=== PATIENT | male | born 1985 | race Two or more races ===

== ENCOUNTER 2017-07-22 20:22 | Emergency (ER) | payer OTHER ==
[2017-07-23 10:23] LABS: NEGATIVE OBC STREP NEG; POSITIVE OBC STREP POS
== END 2017-07-22 21:26 | disposition home or self-care (01) ==
LOC: ER 20:22
DX: J30.9 Allergic rhinitis, unspecified (principal); M53.3 Sacrococcygeal disorders, not elsewhere classified; G89.29 Other chronic pain
CPT/HCPCS: 87070; 87880; 99283

== ENCOUNTER 2017-09-25 14:31 | Emergency (ER) | payer OTHER ==
[2017-09-25 14:52] LABS: BILIRUBIN,URINE NEGATIVE (NEG); CLARITY,URINE CLEAR; COLOR,URINE YELLOW; GLUCOSE,URINE NEGATIVE (NEG); NITRITE,URINE NEGATIVE (NEG); PROTEIN,URINE 100 mg/dL (NEG-TRACE); UROBILINOGEN,URINE 0.2 mg/dL (0.2 mg/dL)
[2017-09-25 14:55] LABS: ADD MAN DIFF? NO
[2017-09-25 15:00] LABS: BASO % 0 % (0-3); EOS # 0.2 x10^3/uL (0.0-0.7); EOS % 2 % (0-3); HEMATOCRIT 45.6 % (39.0-53.0); HEMOGLOBIN 15.8 g/dL (13.0-17.5); LYMPH # 2.7 x10^3/uL (1.0-4.8); LYMPH % 24 % (24-48); MEAN CORPUSCULAR HEMOGLOBIN 29 pg (25-35); MEAN CORPUSCULAR HGB CONC 35 g/dL (31-37); MEAN CORPUSCULAR VOLUME 84 fL (79-100); MONO # 0.6 x10^3/uL (0.0-1.1); MONO % 6 % (0-9); NEUT # 7.7 x10^3uL (1.8-7.7); NEUT % 68 % (31-73); PLATELET COUNT 226 x10^3/uL (140-400); RED BLOOD COUNT 5.41 x10^6/uL (4.30-5.70); RED CELL DISTRIBUTION WIDTH 13.8 % (11.5-14.5); WHITE BLOOD COUNT 11.4 x10^3/uL (4.0-11.0)
[2017-09-25 15:05] LABS: BACTERIA,URINE FEW /HPF (0-FEW); HYALINE CASTS, URINE FEW /HPF; SQUAMOUS EPITHELIAL CELL,UR OCC /LPF
[2017-09-25 15:11] LABS: ANION GAP 11 (6-14); BLOOD UREA NITROGEN 23 mg/dL (8-26); BUN/CREATININE RATIO 18 (6-20); CALCIUM 9.3 mg/dL (8.5-10.1); CARBON DIOXIDE 28 mmol/L (21-32); CHLORIDE 100 mmol/L (98-107); CREATININE 1.3 mg/dL (0.7-1.3); GLUCOSE 98 mg/dL (70-99); POTASSIUM 3.4 mmol/L (3.5-5.1); SODIUM 139 mmol/L (136-145)
[2017-09-25] MEDS: ONDANSETRON PF 4 MG/2 ML VIAL. IV (15:11)
[2017-09-25 15:16] LABS: ALBUMIN 4.6 g/dL (3.4-5.0); ALBUMIN/GLOBULIN RATIO 1.1 (1.0-1.7); ALK PHOS 93 U/L (46-116); ALT (SGPT) 59 U/L (16-63); AST (SGOT) 30 U/L (15-37); LIPASE 97 U/L (73-393); TOTAL BILIRUBIN 0.7 mg/dL (0.2-1.0); TOTAL PROTEIN 8.7 g/dL (6.4-8.2)
[2017-09-25] MEDS: POTASSIUM CHLORIDE 20 MEQ TABLET.ER. PO (15:59)
== END 2017-09-25 17:09 | disposition home or self-care (01) ==
LOC: ER 17:09
DX: R11.2 Nausea with vomiting, unspecified (principal); R19.7 Diarrhea, unspecified; R10.9 Unspecified abdominal pain; G89.29 Other chronic pain; G47.30 Sleep apnea, unspecified
CPT/HCPCS: 36415; 76700; 80053; 81001; 83690; 85025; 96374; 99285-25; J2405

== ENCOUNTER 2018-01-13 18:35 | Emergency (ER) | payer OTHER ==
[~2018-01-13] VITALS: Ht 172.7 cm; Wt 105.7 kg
[~2018-01-13 18:35] MED LIST: METH4TAB2 PO; ONDA4TAB10 SL
[2018-01-13 19:27] VITALS: BP 156/115
[2018-01-13] MEDS ORDERED: ACETAMINOPHEN 500 MG TABLET PO ONE (19:45)
[2018-01-13] MEDS ORDERED: HYDR-971 PO (20:22)
--- NOTE | 2018-01-13 20:22 | PHYS DOC ---
Past Medical History Past Medical History: Hypertension, Other Additional Past Medical Histor: chronic pain, sleep apnea Past Surgical History: Other Additional Past Surgical Histo: palette Alcohol Use: None Drug Use: None Adult General Chief Complaint Chief Complaint: ANKLE PROBLEM HPI HPI Patient is a 32 year old male who presents with right ankle pain after he was walking this evening and twisted his ankle. The patient states that the ankle rolled under him. He took [id number] pain relievers at home with moderate relief. He states that it does still hurt to bear weight on that extremity. He denies any other injury. Review of Systems Review of Systems Constitutional: Denies fever or chills [] Respiratory: Denies cough or shortness of breath [] Cardiovascular: No additional information not addressed in HPI [] GI: Denies abdominal pain, nausea, vomiting, bloody stools or diarrhea [] : Denies dysuria or hematuria [] Musculoskeletal: See history of present illness Integument: Denies rash or skin lesions [] Neurologic: Denies headache, focal weakness or sensory changes [] Endocrine: Denies polyuria or polydipsia [] All other systems were reviewed and found to be within normal limits, except as documented in this note. Current Medications Current Medications Current Medications Medications (Trade) Dose Ordered Sig/[place] Start Time Stop Time Status Last Admin Dose Admin Acetaminophen (Tylenol) 1,000 mg 1X ONCE 01/13/18 19:45 01/13/18 19:46 DC 01/13/18 19:45 1,000 MG Allergies Allergies Allergies Coded Allergies Type Severity Reaction Last Updated Verified No Known Drug Allergies 07/22/17 No Physical Exam Physical Exam Constitutional: Well developed, well nourished, no acute distress, non-toxic appearance. [] Cardiovascular:Heart rate regular rhythm, no murmur [] Lungs & Thorax: Bilateral breath sounds clear to auscultation [] Abdomen: Bowel sounds normal, soft, no tenderness, no masses, no pulsatile masses. [] Skin: Warm, dry, no erythema, no rash. [] Back: No tenderness, no CVA tenderness. [] Extremities: Tenderness to right lateral malleolus with mild ecchymosis and moderate edema, no cyanosis, no clubbing, ROM decreased due to pain, pulses and sensation are intact distal to injury Neurologic: Alert and oriented X 3, normal motor function, normal sensory function, no focal deficits noted. [] Psychologic: Affect normal, judgement normal, mood normal. [] Current Patient Data Vital Signs Vital Signs Date Time Temp Pulse Resp B/P (MAP) Pulse Ox O2 Delivery O2 Flow Rate FiO2 01/13/18 19:27 98.0 94 20 156/115 (129) 97 Room Air 98.0 EKG EKG [] Radiology/Procedures Radiology/Procedures [] Course & Med Decision Making Course & Med Decision Making Pertinent Labs and Imaging studies reviewed. (See chart for details) []The patient was placed in an Aircast for comfort. He is to follow-up with his PCP for possible referral to orthopedics if not improving in 3 days. He is in agreement with this plan. Dragon Disclaimer Dragon Disclaimer This electronic medical record was generated, in whole or in part, using a voice recognition dictation system. Splinting Splinting : Location: R ankle Pre-Made Type: aircast Pre-Proc Neuro Vasc Exam: normal Post-Proc Neuro Vasc Exam: normal, unchanged from pre-exam Departure Departure Impression: Primary Impression: Ankle sprain Disposition: 01 HOME, SELF-CARE Condition: STABLE Referrals: CAITLYN TAO MD (PCP) Patient Instructions: Ankle Sprain Additional Instructions: Wear the Aircast for comfort. Follow-up with your primary care provider for possible referral to orthopedics if not improving in one week. He may take ibuprofen or Tylenol for pain. I have written for a small amount of pain medication. Do not drive or operate heavy machinery while taking this medication. Scripts Hydrocodone/Apap 5-325 (NORCO 5-325 TABLET) 1 Each Tablet 1 TAB PO PRN Q6HRS PRN for PAIN, #14 TAB 0 Refills Prov: BRIANA BELLA APRN 01/13/18 Attending Signature Attending Signature I have reviewed the PA/WHARF HAND's note and plan of care. I was available for consultation as needed during the patient's visit in the emergency department. I agree with the clinical impression, plan, and disposition. BRIANA BELLA APRN Jan 13, 2018 20:22 ANN WILLOUGHBY DO Jan 16, 2018 11:02
--- NOTE | 2018-01-13 23:55 | RAD ---
Examination: ANKLE RIGHT 2V History: RIGHT ANKLE PAIN,SWELLING AFTER TWISTING FOOT TODAY Comparison/Correlation: None Findings: Frontal and lateral views of the right ankle were obtained. Mild soft tissue swelling about the lateral malleolus is present. Ankle joint mortise is adequate. No fracture or bone destruction. Impression: Mild soft tissue swelling about the lateral malleolus. Electronically signed by: Abel Santa MD (01/13/2018 11:52 PM) [facility]
== END 2018-01-13 20:36 | disposition home or self-care (01) ==
LOC: ER 18:35
DX: S93.401A Sprain of unspecified ligament of right ankle, initial encounter (principal); I10 Essential (primary) hypertension; G89.29 Other chronic pain; X50.9XXA Other and unspecified overexertion or strenuous movements or postures, initial encounter; Y93.89 Activity, other specified; Y92.89 Other specified places as the place of occurrence of the external cause; Y99.8 Other external cause status
CPT/HCPCS: 73600; 99284; L4350

== ENCOUNTER 2018-01-20 13:03 | Emergency (ER) | payer OTHER ==
[~2018-01-20] VITALS: Ht 167.6 cm; Wt 105.7 kg
[~2018-01-20 13:03] MED LIST changes: +HYDR-971 PO
[2018-01-20 13:29] VITALS: BP 145/88
--- NOTE | 2018-01-20 14:38 | PHYS DOC ---
Past Medical History Past Medical History: Hypertension, Other Additional Past Medical Histor: chronic pain, sleep apnea Past Surgical History: Other Additional Past Surgical Histo: palette Alcohol Use: None Drug Use: None Adult General Chief Complaint Chief Complaint: ANKLE PROBLEM [facility] Patient is a 32 year old male who presents with right ankle injury. Patient was evaluated in this emergency department one week earlier. He had stepped in a hole and had an inversion type injury to the right ankle. At that time, imaging was negative. He was discharged home with medication for pain. He presents back to the ER today complaining of worsening pain or worsening swelling in the same extremity. He did not sustain an additional injury. No fever or chills. He has been able to bear weight. He states the medications he is using at home does not help relieve his pain. Review of Systems Review of Systems Constitutional: Denies fever or chills Eyes: Denies HENT: Denies Respiratory: Denies Cardiovascular: No additional information not addressed in HPI Musculoskeletal: Denies back pain Integument: Denies rash Neurologic: Denies headache All other systems were reviewed and found to be within normal limits, except as documented in this note. Allergies Allergies Allergies Coded Allergies Type Severity Reaction Last Updated Verified No Known Drug Allergies 07/22/17 No Physical Exam Physical Exam Constitutional: Well developed, well nourished, no acute distress, non-toxic appearance HENT: Normocephalic, atraumatic, bilateral external ears normal, oropharynx moist Eyes: PERRLA, EOMI, conjunctiva normal Neck: Normal range of motion Cardiovascular:Heart rate regular rhythm, no murmur Lungs & Thorax: Bilateral breath sounds clear to auscultation Skin: Warm, dry, no erythema, no rash Extremities: extensive swelling is present is present over the right lateral malleolus. 2+ dp pulses present. Sensation to light touch intact over all dermatomes Neurologic: Alert and oriented X 3 Psychologic: Affect normal Current Patient Data Vital Signs Vital Signs Date Time Temp Pulse Resp B/P (MAP) Pulse Ox O2 Delivery O2 Flow Rate FiO2 01/20/18 13:29 97.9 96 17 145/88 (107) 98 Room Air 97.9 EKG EKG [] Radiology/Procedures Radiology/Procedures FINDINGS: There is a prominent nutrient vessel involving the posterior aspect of the shaft of the right tibia. This is a normal anatomical variant. Otherwise no fracture line is evident. Alignment is normal. No osteolytic process is evident. No soft tissue mass or abscess or hematoma is seen. No significant knee joint effusion is seen. No Judd's cyst is evident. IMPRESSION: No acute osseous abnormality. Course & Med Decision Making Course & Med Decision Making Pertinent Labs and Imaging studies reviewed. (See chart for details) Patient is evaluated for a second time in the emergency department for an ankle injury. This visit, CT scan was performed. There are still no acute bony fracture seen. The patient does have significant swelling on physical exam. Today, he'll be placed AURA wrap. D/c to home with meds for pain and instructions for RICE therapy. Dragon Disclaimer Dragon Disclaimer This electronic medical record was generated, in whole or in part, using a voice recognition dictation system. Departure Departure Referrals: CAITLYN ESTEBAN MD (PCP) Scripts Hydrocodone/Apap 5-325 (NORCO 5-325 TABLET) 1 Each Tablet 1-2 EACH PO PRN Q6HRS PRN for severe pain, #30 as needed for pain Prov: RAFAELA NEWMAN DO 01/20/18 Ibuprofen (IBUPROFEN) 800 Mg Tablet 800 MG PO PRN TID PRN for PAIN, #30 TAB take with food or milk to avoid upsetting stomach Prov: RAFAELA NEWMAN DO 01/20/18 RAFAELA NEWMAN DO Jan 20, 2018 14:38
--- NOTE | 2018-01-20 15:36 | RAD ---
CT study of the right lower leg without contrast Clinical indications: Trauma. Worsening pain/swelling. TECHNIQUE: Noncontrast helical CT scanning of the right lower leg from the knee down through the mortise ankle joint and foot performed. Multiplanar 2-D reconstructions were generated. PQRS compliance Statement One or more of the following individualized dose reduction techniques were utilized for this study: 1. Automated exposure control 2. Adjustment of the mA and/or kV according to patient size 3. Use of iterative reconstruction technique FINDINGS: There is a prominent nutrient vessel involving the posterior aspect of the shaft of the right tibia. This is a normal anatomical variant. Otherwise no fracture line is evident. Alignment is normal. No osteolytic process is evident. No soft tissue mass or abscess or hematoma is seen. No significant knee joint effusion is seen. No Judd's cyst is evident. IMPRESSION: No acute osseous abnormality. Electronically signed by: Saad Nielsen MD (01/20/2018 3:33 PM) [id number]
[2018-01-20] MEDS ORDERED: IBUP-1060 PO (15:51)
[2018-01-20] MEDS ORDERED: HYDR-971 PO (15:51)
== END 2018-01-20 16:15 | disposition home or self-care (01) ==
LOC: ER 13:03
DX: S99.911A Unspecified injury of right ankle, initial encounter (principal); I10 Essential (primary) hypertension; G89.29 Other chronic pain; X50.9XXA Other and unspecified overexertion or strenuous movements or postures, initial encounter; Y93.89 Activity, other specified; Y92.89 Other specified places as the place of occurrence of the external cause; Y99.8 Other external cause status
CPT/HCPCS: 73700; 99284-25

== ENCOUNTER 2018-05-11 08:16 | Emergency (ER) | payer OTHER ==
[~2018-05-11] VITALS: Ht 167.6 cm; Wt 99.8 kg
[~2018-05-11 08:16] MED LIST changes: +HYDR-3164 PO; -HYDR-971 PO; +IBUP-1060 PO
[2018-05-11] MEDS ORDERED: ONDANSETRON PF 4 MG/2 ML VIAL. IV ONE (08:30)
[2018-05-11] MEDS ORDERED: IV NORMAL SALINE 1000ML BAG 1,000 ML IV ONE ×2 (08:30→09:00)
--- NOTE | 2018-05-11 08:37 | PHYS DOC ---
Past Medical History Past Medical History: Hypertension, Other Additional Past Medical Histor: chronic pain, sleep apnea Past Surgical History: Other Additional Past Surgical Histo: palette Alcohol Use: None Drug Use: None Adult General Chief Complaint Chief Complaint: FLU SYMPTOM HPI HPI Patient is a 32 year old male who presents with nasal congestion, dry cough, chills, bodyaches since yesterday. Patient has began having nausea and vomiting today. Review of Systems Review of Systems Constitutional: Denies fever or chills [] Eyes: Denies change in visual acuity, redness, or eye pain [] HENT: nasal congestion or denies sore throat [] Respiratory: cough or denies shortness of breath [] Cardiovascular: No additional information not addressed in HPI [] GI: Denies abdominal pain. + nausea, +vomiting, denies bloody stools or diarrhea [] : Denies dysuria or hematuria [] Musculoskeletal: Denies back pain or joint pain [] Integument: Denies rash or skin lesions [] Neurologic: Denies headache, focal weakness or sensory changes [] All other systems were reviewed and found to be within normal limits, except as documented in this note. Current Medications Current Medications Current Medications Medications (Trade) Dose Ordered Sig/[facility] Start Time Stop Time Status Last Admin Dose Admin Ketorolac Tromethamine (Toradol 30mg Vial) 30 mg 1X ONCE 05/11/18 09:00 05/11/18 09:01 DC 05/11/18 08:58 30 MG Ondansetron HCl (Zofran) 4 mg 1X ONCE 05/11/18 08:30 05/11/18 08:31 DC 05/11/18 08:59 4 MG Sodium Chloride 1,000 ml @ 1,000 mls/hr 1X ONCE 05/11/18 09:00 05/11/18 09:59 DC 05/11/18 09:18 1,000 MLS/HR Allergies Allergies Allergies Coded Allergies Type Severity Reaction Last Updated Verified No Known Drug Allergies 07/22/17 No Physical Exam Physical Exam Constitutional: Well developed, well nourished, no acute distress, non-toxic appearance. [] HENT: Normocephalic, atraumatic, bilateral external ears normal, oropharynx moist, no oral exudates, nose normal. throat red and swollen without exudates.[] Eyes: PERRLA, EOMI, conjunctiva normal, no discharge. [] Neck: Normal range of motion, no tenderness, supple, no stridor. [] Cardiovascular:Heart rate tachy rhythm, no murmur [] Lungs & Thorax: Bilateral breath sounds clear to auscultation [] Abdomen: Bowel sounds normal, soft, no tenderness, no masses, no pulsatile masses. [] Skin: Warm, dry, no erythema, no rash. [] Back: No tenderness, no CVA tenderness. [] Extremities: No tenderness, no cyanosis, no clubbing, ROM intact, no edema. [] Neurologic: Alert and oriented X 3, normal motor function, normal sensory function, no focal deficits noted. [] Psychologic: Affect normal, judgement normal, mood normal. [] Current Patient Data Vital Signs Vital Signs Date Time Temp Pulse Resp B/P (MAP) Pulse Ox O2 Delivery O2 Flow Rate FiO2 05/11/18 10:17 98 16 98 Room Air 05/11/18 09:54 122/65 (84) 05/11/18 08:45 100.1 100.1 Lab Values Laboratory Tests Test 05/11/18 08:45 05/11/18 08:47 White Blood Count 7.2 x10^3/uL (4.0-11.0) Red Blood Count 5.37 x10^6/uL (4.30-5.70) Hemoglobin 15.1 g/dL (13.0-17.5) Hematocrit 44.2 % (39.0-53.0) Mean Corpuscular Volume 82 fL (79-100) Mean Corpuscular Hemoglobin 28 pg (25-35) Mean Corpuscular Hemoglobin Concent 34 g/dL (31-37) Red Cell Distribution Width 13.8 % (11.5-14.5) Platelet Count 155 x10^3/uL (140-400) Neutrophils (%) (Auto) 85 % (31-73) H Lymphocytes (%) (Auto) 8 % (24-48) L Monocytes (%) (Auto) 5 % (0-9) Eosinophils (%) (Auto) 2 % (0-3) Basophils (%) (Auto) 0 % (0-3) Neutrophils # (Auto) 6.1 x10^3uL (1.8-7.7) Lymphocytes # (Auto) 0.6 x10^3/uL (1.0-4.8) L Monocytes # (Auto) 0.4 x10^3/uL (0.0-1.1) Eosinophils # (Auto) 0.1 x10^3/uL (0.0-0.7) Basophils # (Auto) 0.0 x10^3/uL (0.0-0.2) Sodium Level 138 mmol/L (136-145) Potassium Level 4.4 mmol/L (3.5-5.1) Chloride Level 101 mmol/L (98-107) Carbon Dioxide Level 28 mmol/L (21-32) Anion Gap 9 (6-14) Blood Urea Nitrogen 17 mg/dL (8-26) Creatinine 1.2 mg/dL (0.7-1.3) Estimated GFR (Cockcroft-Gault) 70.2 Glucose Level 107 mg/dL (70-99) H Calcium Level 9.2 mg/dL (8.5-10.1) Influenza Type A Antigen Positive (NEGATIVE) Influenza Type B Antigen Negative (NEGATIVE) Laboratory Tests 05/11/18 08:45 Laboratory Tests 05/11/18 08:45 EKG EKG [] Radiology/Procedures Radiology/Procedures [] Course & Med Decision Making Course & Med Decision Making Patient is a 32 year old male who presents with nasal congestion, dry cough, chills, bodyaches since yesterday. Patient has began having nausea and vomiting today. Patient states he has not taken any medication he is afebrile. Patient is tachycardia at 110. Lungs are clear to auscultation in all lobes. Alert and oriented. Ambulatory with steady gait. Speaks in full clear senses. Mucous membranes are moist. Patient states his only vomited twice but he has not ate any food today. skin pink warm and dry. Abdomen is soft and nontender. Rates his generalized body aches at a 6/10. Patient denies throat pain, ear pain, abdominal pain, dysuria, headache, chest pain, soa. Bilateral tympanic are pearly white. Throat red and swelling but no exudates. Blood work unremarkable. Positive Flu A. Strep negative. Patient has received 2 boluses of NS and heart rate is 94. Patient will be treated with Tamiflu, Zofran and Tessalon Perles. Patient to follow up with primary care physician if not feeling better after 3-4 days or worsening. Dragon Disclaimer Dragon Disclaimer This electronic medical record was generated, in whole or in part, using a voice recognition dictation system. Departure Departure Impression: Primary Impression: Influenza A Disposition: 01 HOME, SELF-CARE Condition: STABLE Referrals: CAITLYN ESTEBAN MD (PCP) Patient Instructions: Influenza A (H1N1) Additional Instructions: Follow up with primary care provider if not getting better after 3-4 days or symptoms worsen. Drink plenty of water. Take Ibuprofen or Tylenol for pain or fever. Scripts Methylprednisolone (MEDROL) 4 Mg Tab.ds.pk 1 PKG PO UD, #1 PKG Prov: TORITO HOWELL APRN 05/11/18 Benzonatate (TESSALON PERLE) 100 Mg Capsule 1 CAP PO TID, #30 CAP Prov: TORITO HOWELL APRN 05/11/18 Ondansetron (ONDANSETRON ODT) 4 Mg Tab.rapdis 1 TAB PO PRN Q6-8HRS, #20 TAB Prov: TORITO HOWELL APRN 05/11/18 Oseltamivir Phosphate (TAMIFLU) 75 Mg Capsule 1 CAP PO BID for 5 Days, #10 CAP Prov: TORITO HOWELL APRN 05/11/18 TORITO HOWELL APRN May 11, 2018 08:37
[2018-05-11 08:58] LABS: BASO % 0 % (0-3); EOS # 0.1 x10^3/uL (0.0-0.7); EOS % 2 % (0-3); HEMATOCRIT 44.2 % (39.0-53.0); HEMOGLOBIN 15.1 g/dL (13.0-17.5); LYMPH # 0.6 x10^3/uL (1.0-4.8); LYMPH % 8 % (24-48); MEAN CORPUSCULAR HEMOGLOBIN 28 pg (25-35); MEAN CORPUSCULAR HGB CONC 34 g/dL (31-37); MEAN CORPUSCULAR VOLUME 82 fL (79-100); MONO # 0.4 x10^3/uL (0.0-1.1); MONO % 5 % (0-9); NEUT # 6.1 x10^3uL (1.8-7.7); NEUT % 85 % (31-73); PLATELET COUNT 155 x10^3/uL (140-400); RED BLOOD COUNT 5.37 x10^6/uL (4.30-5.70); RED CELL DISTRIBUTION WIDTH 13.8 % (11.5-14.5); WHITE BLOOD COUNT 7.2 x10^3/uL (4.0-11.0)
[2018-05-11] MEDS ORDERED: KETOROLAC 30 MG/ML VIAL. IV ONE (09:00)
[2018-05-11 09:07] LABS: CALCIUM 9.2 mg/dL (8.5-10.1); CREATININE 1.2 mg/dL (0.7-1.3); GFR 70.2; POTASSIUM 4.4 mmol/L (3.5-5.1)
[2018-05-11 09:29] LABS: INFLUENZA A PATIENT POSITIVE (NEGATIVE); INFLUENZA B PATIENT NEGATIVE (NEGATIVE)
[2018-05-11] MEDS ORDERED: ONDA4TAB12 PO (09:35)
[2018-05-11] MEDS ORDERED: BENZ100C PO (09:35)
[2018-05-11] MEDS ORDERED: OSEL75CA PO (09:35)
[2018-05-11 09:54] VITALS: BP 122/65
[2018-05-11] MEDS ORDERED: METH4TAB2 PO (10:19)
== END 2018-05-11 10:32 | disposition home or self-care (01) ==
LOC: ER 08:16
DX: J10.1 Influenza due to other identified influenza virus with other respiratory manifestations (principal); R11.2 Nausea with vomiting, unspecified; G89.29 Other chronic pain; I10 Essential (primary) hypertension
CPT/HCPCS: 36415; 80048; 85025; 87070; 87804; 87880; 96361; 96374; 96375; 99283; J1885; J2405; J7030

== ENCOUNTER 2018-07-10 19:07 | Emergency (ER) | payer OTHER ==
[~2018-07-10] VITALS: Ht 172.7 cm; Wt 90.7 kg
[~2018-07-10 19:07] MED LIST changes: +BENZ100C PO; +ONDA4TAB12 PO; +OSEL75CA PO
[2018-07-10] MEDS ORDERED: METO50TA6 PO (20:07)
[2018-07-10] MEDS ORDERED: predniSONE 20 MG TABLET PO ONE (20:15)
--- NOTE | 2018-07-10 20:16 | PHYS DOC ---
Past Medical History Past Medical History: Hypertension Additional Past Medical Histor: SLEEP APNEA (UYEN GODDARD) Past Surgical History: Other Additional Past Surgical Histo: CLEFT PALATE (UYEN GODDARD) Alcohol Use: None Drug Use: None (UYEN GODDARD) Adult General Chief Complaint Chief Complaint: COUGH HPI HPI Patient is a 32 year old M who reports cough x 2 weeks. He has had scratchy throat and watery, itchy eyes and reports the over the counter claritin or rey adryl doesn't seem to be helping. (UYEN GODDARD) Review of Systems Review of Systems Constitutional: Denies fever or chills [] Eyes: Denies change in visual acuity. Reports dry scratchy eyes B HENT: Reports nasal congestion and scratchy throat. Respiratory: Denies cough or shortness of breath [] Cardiovascular: Denies chest pain GI: Denies abdominal pain, nausea, vomiting, bloody stools or diarrhea [] : Denies dysuria or hematuria [] Musculoskeletal: Denies back pain or joint pain [] Integument: Denies rash or skin lesions [] Neurologic: Denies headache, focal weakness or sensory changes [] All other systems were reviewed and found to be within normal limits, except as documented in this note. (UYEN GODDARD) Current Medications Current Medications Current Medications Medications (Trade) Dose Ordered Sig/[place] Start Time Stop Time Status Last Admin Dose Admin Prednisone (Prednisone) 60 mg 1X ONCE 07/10/18 20:15 07/10/18 20:16 DC 07/10/18 20:27 60 MG (ANN WILLOUGHBY DO) Allergies Allergies Allergies Coded Allergies Type Severity Reaction Last Updated Verified No Known Drug Allergies 07/22/17 No (ANN WILLOUGHBY DO) Physical Exam Physical Exam Constitutional: Well developed, well nourished, no acute distress, non-toxic appearance. [] HENT: Normocephalic, atraumatic, bilateral external ears normal, oropharynx moist. Clear nasal drainage and post nasal drip noted in oropharynx. Eyes: PERRLA, EOMI, conjunctiva normal, no discharge. [] Neck: Normal range of motion, no tenderness, supple, no stridor. [] Cardiovascular:Heart rate regular rhythm, no murmur [] Lungs & Thorax: Bilateral scattered wheezes. Abdomen: Bowel sounds normal, soft, no tenderness, no masses, no pulsatile masses. [] Skin: Warm, dry, no erythema, no rash. [] Back: No tenderness, no CVA tenderness. [] Extremities: No tenderness, no cyanosis, no clubbing, ROM intact, no edema. [] Neurologic: Alert and oriented X 3, normal motor function, normal sensory functi on, no focal deficits noted. [] Psychologic: Affect normal, judgement normal, mood normal. [] (UYEN GODDARD) Current Patient Data Vital Signs Vital Signs Date Time Temp Pulse Resp B/P (MAP) Pulse Ox O2 Delivery O2 Flow Rate FiO2 07/10/18 20:52 94 20 131/80 (97) 94 Room Air 07/10/18 19:56 97.9 97.9 (ANN WILLOUGHBY DO) EKG EKG [] (UYEN GODDARD) Radiology/Procedures Radiology/Procedures CXR: xray is neg for infiltrate (UYEN GODDARD) Course & Med Decision Making Course & Med Decision Making Pertinent Labs and Imaging studies reviewed. (See chart for details) Pt with signs and symptoms of seasonal allergies and bronchitis. Pt to follow up with PCP and return to ER if symptoms worsen at anytime. (UYEN GODDARD) Dragon Disclaimer Dragon Disclaimer This electronic medical record was generated, in whole or in part, using a voice recognition dictation system. (UYEN GODDARD) Departure Departure Impression: Primary Impression: Bronchitis Additional Impression: Seasonal allergies Disposition: HOME, SELF-CARE Condition: STABLE Referrals: CAITLYN ESTEBAN MD (PCP) Patient Instructions: Acute Bronchitis, [id number], Allergies, Generic Additional Instructions: Continue the Claritin. Scripts Azithromycin (AZITHROMYCIN PACKET) 1 Gm Packet 1 PACKET PO ONCE, #1 PACKET Prov: UYEN GODDARD 07/10/18 Methylprednisolone (MEDROL) 4 Mg Tab.ds.pk 1 PKG PO UD, #1 PKG Prov: UYEN GODDARD 07/10/18 Attending Signature Attending Signature I have reviewed the PA/FLAT LOCK MACHINE OPERATOR's note and plan of care. I was available for consu ltation as needed during the patient's visit in the emergency department. I agree with the clinical impression, plan, and disposition. (ANN WILLOUGHBY DO) Problem Qualifiers UYEN GODDARD Jul 10, 2018 20:16 ANN WILLOUGHBY DO Jul 13, 2018 15:33
[2018-07-10] MEDS ORDERED: AZIT1PAC9 PO (20:37)
[2018-07-10] MEDS ORDERED: METH4TAB2 PO (20:37)
[2018-07-10 20:52] VITALS: BP 131/80
--- NOTE | 2018-07-10 22:31 | RAD ---
Two-view chest dated 07/10/2018. No comparison available. Clinical data indication: Cough. FINDINGS: PA and lateral views of the chest were obtained. Heart and mediastinal contours are stable. Lungs are clear without focal consolidation. Vascular interstitium within normal limits. No pleural effusion or pneumothorax. IMPRESSION: No acute radiographic abnormality. Electronically signed by: Felix Sosa MD (07/10/2018 10:29 PM) [id number]
== END 2018-07-10 20:52 | disposition home or self-care (01) ==
LOC: ER 19:07
DX: J40 Bronchitis, not specified as acute or chronic (principal); J30.2 Other seasonal allergic rhinitis; I10 Essential (primary) hypertension
CPT/HCPCS: 71046; 99284; J7512

== ENCOUNTER 2018-07-29 09:11 | Emergency (ER) | payer OTHER ==
[~2018-07-29] VITALS: Ht 167.6 cm; Wt 102.1 kg
[~2018-07-29 09:11] MED LIST changes: +AZIT1PAC9 PO; +METO50TA6 PO
[2018-07-29] MEDS ORDERED: ONDANSETRON PF 4 MG/2 ML VIAL. IV ONE (09:30)
[2018-07-29] MEDS ORDERED: IV NORMAL SALINE 1000ML BAG 1,000 ML IV ONE (09:30)
--- NOTE | 2018-07-29 09:45 | PHYS DOC ---
Past Medical History Past Medical History: Hypertension Additional Past Medical Histor: SLEEP APNEA Past Surgical History: Other Additional Past Surgical Histo: CLEFT PALATE Alcohol Use: None Drug Use: None Adult General Chief Complaint Chief Complaint: NAUSEA/VOMITING/DIARRHA HPI HPI Patient is a 32 year old M who presents with vomiting. He has been sick since late last night. Vomiting many times. A few episodes of diarrhea. Epigastric pain. He denies sick contacts. He went to the gym last night and on his way drank a supplement called somatomax. He denies fevers/chills. He does feel dizzy if he stands up too fast. He denies prior history of similar episodes. He is otherwise healthy and has never been hospitalized. Review of Systems Review of Systems Constitutional: Denies fever or chills Eyes: Denies change in visual acuity, redness, or eye pain HENT: Denies nasal congestion or sore throat Respiratory: Denies cough or shortness of breath Cardiovascular: No additional information not addressed in HPI GI: Endorses vomiting and diarrhea : Denies dysuria or hematuria Musculoskeletal: Denies back pain or joint pain Integument: Denies rash or skin lesions Neurologic: Denies headache, focal weakness or sensory changes Endocrine: Denies polyuria or polydipsia All other systems were reviewed and found to be within normal limits, except as documented in this note. Current Medications Current Medications Current Medications Medications (Trade) Dose Ordered Sig/Franklyn Start Time Stop Time Status Last Admin Dose Admin Ondansetron HCl (Zofran) 4 mg 1X ONCE 07/29/18 09:30 07/29/18 09:31 DC 07/29/18 09:36 4 MG Sodium Chloride 1,000 ml @ 1,000 mls/hr 1X ONCE 07/29/18 09:30 07/29/18 10:29 DC 07/29/18 09:34 1,000 MLS/HR Allergies Allergies Allergies Coded Allergies Type Severity Reaction Last Updated Verified No Known Drug Allergies 07/22/17 No Physical Exam Physical Exam Constitutional: Well developed, well nourished, no acute distress, non-toxic appearance. HENT: Normocephalic, atraumatic, bilateral external ears normal, oropharynx moist, no oral exudates, nose normal. Eyes: PERRLA, EOMI, conjunctiva normal, no discharge. Neck: Normal range of motion, no tenderness, supple, no stridor. Cardiovascular:Heart rate regular rhythm, no murmur Lungs & Thorax: Bilateral breath sounds clear to auscultation Abdomen: Bowel sounds normal, soft, no tenderness, no masses, no pulsatile masses. Skin: Warm, dry, no erythema, no rash. Back: No tenderness, no CVA tenderness. Extremities: No tenderness, no cyanosis, no clubbing, ROM intact, no edema. Neurologic: Alert and oriented X 3, normal motor function, normal sensory function, no focal deficits noted. Psychologic: Affect normal, judgement normal, mood normal. Current Patient Data Vital Signs Vital Signs Date Time Temp Pulse Resp B/P (MAP) Pulse Ox O2 Delivery O2 Flow Rate FiO2 07/29/18 11:02 69 16 137/82 (100) 99 07/29/18 09:47 Room Air 07/29/18 09:15 97.6 97.6 Lab Values Laboratory Tests Test 07/29/18 09:18 White Blood Count 8.9 x10^3/uL (4.0-11.0) Red Blood Count 5.22 x10^6/uL (4.30-5.70) Hemoglobin 15.0 g/dL (13.0-17.5) Hematocrit 43.5 % (39.0-53.0) Mean Corpuscular Volume 83 fL (79-100) Mean Corpuscular Hemoglobin 29 pg (25-35) Mean Corpuscular Hemoglobin Concent 35 g/dL (31-37) Red Cell Distribution Width 13.9 % (11.5-14.5) Platelet Count 203 x10^3/uL (140-400) Neutrophils (%) (Auto) 82 % (31-73) H Lymphocytes (%) (Auto) 14 % (24-48) L Monocytes (%) (Auto) 4 % (0-9) Eosinophils (%) (Auto) 1 % (0-3) Basophils (%) (Auto) 0 % (0-3) Neutrophils # (Auto) 7.3 x10^3uL (1.8-7.7) Lymphocytes # (Auto) 1.2 x10^3/uL (1.0-4.8) Monocytes # (Auto) 0.3 x10^3/uL (0.0-1.1) Eosinophils # (Auto) 0.1 x10^3/uL (0.0-0.7) Basophils # (Auto) 0.0 x10^3/uL (0.0-0.2) Sodium Level 139 mmol/L (136-145) Potassium Level 4.2 mmol/L (3.5-5.1) Chloride Level 103 mmol/L (98-107) Carbon Dioxide Level 24 mmol/L (21-32) Anion Gap 12 (6-14) Blood Urea Nitrogen 15 mg/dL (8-26) Creatinine 0.9 mg/dL (0.7-1.3) Estimated GFR (Cockcroft-Gault) 97.8 BUN/Creatinine Ratio 17 (6-20) Glucose Level 141 mg/dL (70-99) H Calcium Level 9.3 mg/dL (8.5-10.1) Total Bilirubin 0.5 mg/dL (0.2-1.0) Aspartate Amino Transferase (AST) 60 U/L (15-37) H Alanine Aminotransferase (ALT) 78 U/L (16-63) H Alkaline Phosphatase 71 U/L (46-116) Total Protein 7.7 g/dL (6.4-8.2) Albumin 4.0 g/dL (3.4-5.0) Albumin/Globulin Ratio 1.1 (1.0-1.7) Lipase 67 U/L (73-393) L Laboratory Tests 07/29/18 09:18 Laboratory Tests 07/29/18 09:18 EKG EKG [] Radiology/Procedures Radiology/Procedures [] Course & Med Decision Making Course & Med Decision Making Pertinent Labs and Imaging studies reviewed. (See chart for details) 32 y/o M presents for dizziness, vomiting, diarrhea after taking somatomax supplement. Ingredients include aminos and vitamins - side effects include vomiting, diarrhea, dizziness. Tx with zofran and NS bolus. check labs. Pt is feeling much better. no further vomiting. labs reassuring. Suspect sx are due to side effect from supplement vs viral. Discussed elevated LFTs and need for repeat. Pt would like to go home. DC home. Follow up with PMD. Nasir Disclaimer Nasir Disclaimer This electronic medical record was generated, in whole or in part, using a voice recognition dictation system. Departure Departure Impression: Primary Impression: Vomiting Disposition: HOME, SELF-CARE Condition: IMPROVED Referrals: CAITLYN ESTEBAN MD (PCP) Patient Instructions: Nausea and Vomiting Scripts Ondansetron Hcl (ZOFRAN) 4 Mg Tablet 4 MG PO PRN TID PRN for VOMITING for 7 Days, #15 EACH 1 Refill nausea/vomiting Prov: KARLA ROLDAN MD 07/29/18 KARLA ROLDAN MD July 29, 2018 09:45
[2018-07-29 09:52] LABS: CALCIUM 9.3 mg/dL (8.5-10.1); CREATININE 0.9 mg/dL (0.7-1.3); GFR 97.8; POTASSIUM 4.2 mmol/L (3.5-5.1)
[2018-07-29 09:55] LABS: BASO % 0 % (0-3); EOS # 0.1 x10^3/uL (0.0-0.7); EOS % 1 % (0-3); HEMATOCRIT 43.5 % (39.0-53.0); LYMPH # 1.2 x10^3/uL (1.0-4.8); LYMPH % 14 % (24-48); MEAN CORPUSCULAR HEMOGLOBIN 29 pg (25-35); MEAN CORPUSCULAR HGB CONC 35 g/dL (31-37); MEAN CORPUSCULAR VOLUME 83 fL (79-100); MONO # 0.3 x10^3/uL (0.0-1.1); MONO % 4 % (0-9); NEUT # 7.3 x10^3uL (1.8-7.7); NEUT % 82 % (31-73); PLATELET COUNT 203 x10^3/uL (140-400); RED BLOOD COUNT 5.22 x10^6/uL (4.30-5.70); RED CELL DISTRIBUTION WIDTH 13.9 % (11.5-14.5); WHITE BLOOD COUNT 8.9 x10^3/uL (4.0-11.0)
[2018-07-29 09:58] LABS: ALBUMIN/GLOBULIN RATIO 1.1 (1.0-1.7); TOTAL BILIRUBIN 0.5 mg/dL (0.2-1.0); TOTAL PROTEIN 7.7 g/dL (6.4-8.2)
[2018-07-29] MEDS ORDERED: ONDA4TAB7 PO (10:57)
[2018-07-29 11:02] VITALS: BP 137/82
== END 2018-07-29 11:06 | disposition home or self-care (01) ==
LOC: ER 09:11
DX: R11.10 Vomiting, unspecified (principal); R19.7 Diarrhea, unspecified; R10.13 Epigastric pain; R42 Dizziness and giddiness; I10 Essential (primary) hypertension
CPT/HCPCS: 36415; 80053; 83690; 85025; 96361; 96374; 99284; J2405; J7030

== ENCOUNTER 2019-04-12 12:45 | Emergency (ER) | payer MEDICAID ==
[~2019-04-12] VITALS: Ht 177.8 cm; Wt 90.1 kg
[~2019-04-12 12:45] MED LIST changes: +CLIN150C14 PO; +ONDA4TAB7 PO
[2019-04-12 13:07] VITALS: BP 158/97
--- NOTE | 2019-04-12 13:14 | PHYS DOC ---
Past Medical History Past Medical History: No Pertinent History, Hypertension Additional Past Medical Histor: SLEEP APNEA Past Surgical History: Other Additional Past Surgical Histo: CLEFT PALATE Alcohol Use: None Drug Use: None Adult General Chief Complaint Chief Complaint: SORE THROAT HPI HPI Patient is a 33 year old [male] who presents with [2 days fever, cough, sore throat, fatigue. Patient reports his daughter at home is have the same symptoms started at the same time as he did. Denies any vomiting, however does state he has felt a little bit nauseous. States he is taking some NyQuil for his malaise, he felt a little bit better but has not taken anything else. States he has a dry nonproductive cough. Denies any chest discomfort.] Review of Systems Review of Systems Constitutional: Reports fever and chills for the last 2 days, reports he just cannot get warm.[] Eyes: Denies change in visual acuity, redness, or eye pain [] HENT: Reports congestion, reports sore throat.[] Respiratory: Reports cough, denies shortness of breath[] Cardiovascular: No additional information not addressed in HPI [] GI: Denies abdominal pain, vomiting, bloody stools or diarrhea does state he feels a little bit of nausea when he has been coughing[] : Denies dysuria or hematuria [] Musculoskeletal: Denies back pain or joint pain does report body aches[] Integument: Denies rash or skin lesions [] Neurologic: Denies headache, focal weakness or sensory changes [] Endocrine: Denies polyuria or polydipsia [] All other systems were reviewed and found to be within normal limits, except as documented in this note. Allergies Allergies Allergies Coded Allergies Type Severity Reaction Last Updated Verified No Known Drug Allergies 07/22/17 No Physical Exam Physical Exam Constitutional: Well developed, well nourished, no acute distress, non-toxic appearance. [] HENT: Normocephalic, atraumatic, bilateral external ears normal, oropharynx moist, tonsils 3+, minimal erythema, no purulence noted no oral exudates, nose normal. [] Eyes: PERRLA, EOMI, conjunctiva normal, no discharge. [] Neck: Normal range of motion, no tenderness, supple, no stridor. [] Cardiovascular:Heart rate tachycardic rhythm, no murmur [] Lungs & Thorax: Bilateral breath sounds clear to auscultation, faint wheeze noted to right chest [] Abdomen: Bowel sounds normal, soft, no tenderness, no masses, no pulsatile masses. [] Skin: Warm, dry, no erythema, no rash. [] Back: No tenderness, no CVA tenderness. [] Extremities: No tenderness, no cyanosis, no clubbing, ROM intact, no edema. [] Neurologic: Alert and oriented X 3, normal motor function, normal sensory function, no focal deficits noted. [] Psychologic: Affect normal, judgement normal, mood normal. [] Current Patient Data Vital Signs Vital Signs Date Time Temp Pulse Resp B/P (MAP) Pulse Ox O2 Delivery O2 Flow Rate FiO2 04/12/19 13:07 99.1 98 16 158/97 (117) 96 Room Air 99.1 Lab Values Laboratory Tests Test 04/12/19 12:55 04/12/19 13:00 Influenza Type A Antigen Negative (NEGATIVE) Influenza Type B Antigen Negative (NEGATIVE) Group A Streptococcus Rapid Negative (NEGATIVE) EKG EKG [] Radiology/Procedures Radiology/Procedures []CHEST PA LATERAL History: Fever. Cough. Comparison: July 10, 2018 Findings: No consolidation or pleural effusion. Normal heart size. No pneumothorax. Calcified pulmonary nodules within the left lateral midlung, unchanged. Impression: 1. No acute cardiopulmonary process. Electronically signed by: Garett Dudley DO (04/12/2019 2:16 PM) [facility] Course & Med Decision Making Course & Med Decision Making Pertinent Labs and Imaging studies reviewed. (See chart for details) []Reviewed imaging and testing with patient, without acute findings. Patient's symptoms appear viral, patient able to drink, well hydrated. Other family m embers with similar illness. May continue fluids, NSAIDs as needed. Dragon Disclaimer Dragon Disclaimer This electronic medical record was generated, in whole or in part, using a voice recognition dictation system. Departure Departure Impression: Primary Impression: Upper respiratory infection Disposition: HOME, SELF-CARE Condition: STABLE Referrals: NO PCP (PCP) Patient Instructions: Upper Respiratory Infection, Adult Additional Instructions: [place] hablemos, vamos recetar unos esteroides para el tos y garganta para los siguiente 5 mckeon. Rubi skyler vez al george. Tambien puede rubi algo medicina para tos de farmacia. Algo similar con los que esta imprimido en los papeles (Cough and Cold medications). Rubi mas agua y descansa. / As we discussed, we are going to write you for some steroids for cough and your sore throat the next 5 days. You may use something from the pharmacy, something similar to what was printed (Cough and cold medications). drink more water and rest. Scripts Methylprednisolone (MEDROL) 4 Mg Tab.ds.pk 1 PKG PO UD, #1 PKG Prov: WAYNE DOAN E BOOK COVERER 04/12/19 Problem Qualifiers Primary Impression: Upper respiratory infection URI type: unspecified viral URI Qualified Codes: J06.9 - Acute upper respiratory infection, unspecified WAYNE DOAN E BOOK COVERER Apr 12, 2019 13:14
[2019-04-12 13:35] LABS: INFLUENZA A PATIENT NEGATIVE (NEGATIVE); INFLUENZA B PATIENT NEGATIVE (NEGATIVE)
--- NOTE | 2019-04-12 14:19 | RAD ---
CHEST PA LATERAL History: Fever. Cough. Comparison: July 10, 2018 Findings: No consolidation or pleural effusion. Normal heart size. No pneumothorax. Calcified pulmonary nodules within the left lateral midlung, unchanged. Impression: 1. No acute cardiopulmonary process. Electronically signed by: Garett Dudley DO (04/12/2019 2:16 PM) [facility]
[2019-04-12] MEDS ORDERED: METH4TAB2 PO (14:47)
== END 2019-04-12 14:55 | disposition home or self-care (01) ==
LOC: ER 12:45
DX: J06.9 Acute upper respiratory infection, unspecified (principal); I10 Essential (primary) hypertension
CPT/HCPCS: 71046; 87070; 87804; 87880; 99285-25

== ENCOUNTER 2019-06-24 08:52 | Emergency (ER) | payer MEDICAID ==
[~2019-06-24] VITALS: Ht 167.6 cm; Wt 104.5 kg
[2019-06-24] MEDS ORDERED: IV NORMAL SALINE 1000ML BAG 1,000 ML IV SCH (09:20)
--- NOTE | 2019-06-24 09:26 | PHYS DOC ---
Past Medical History Past Medical History: Hypertension Additional Past Medical Histor: SLEEP APNEA Past Surgical History: Other Additional Past Surgical Histo: CLEFT PALATE Smoking Status: Never Smoker Alcohol Use: None Drug Use: None General Adult EDM: Chief Complaint: DIARRHEA HPI: HPI: Patient is a 33 year old Mongolian-speaking male with history of hypertension who presents with complaining of diarrhea. History was taken via translating line. Patient complaining of frequent episodes of loose stool for the last 5 days with headache, sore throat, nonproductive cough, subjective fever, myalgia and generalized weakness. Patient denies chest pain, shortness of breath, sick contact, vomiting, focal neuro deficit. Review of Systems: Review of Systems: Constitutional: Reports subjective fever Eyes: Denies change in visual acuity. [] HENT: Denies nasal congestion, report sore throat. [] Respiratory: Denies shortness of breath, reports cough. [] Cardiovascular: Denies chest pain or edema. [] GI: Denies abdominal pain, nausea, vomiting, bloody stools, report diarrhea. [] : Denies dysuria. [] Musculoskeletal: Denies back pain or joint pain. [] Integument: Denies rash. [] Neurologic: Denies headache, focal weakness or sensory changes. [] Endocrine: Denies polyuria or polydipsia. [] Lymphatic: Denies swollen glands. [] Psychiatric: Denies depression or anxiety. [] Heart Score: Risk Factors: Risk Factors: DM, Current or recent (<one month) smoker, HTN, HLP, family history of CAD, obesity. Risk Scores: Score 0 - 3: 2.5% MACE over next 6 weeks - Discharge Home Score 4 - 6: 20.3% MACE over next 6 weeks - Admit for Clinical Observation Score 7 - 10: 72.7% MACE over next 6 weeks - Early Invasive Strategies Current Medications: Current Medications Medications (Trade) Dose Ordered Sig/Franklyn Start Time Stop Time Status Last Admin Dose Admin Sodium Chloride 1,000 ml @ 1,000 mls/hr Q1H 06/24/19 09:20 06/24/19 10:19 Allergies: Allergies: Allergies Coded Allergies Type Severity Reaction Last Updated Verified No Known Drug Allergies 07/22/17 No Physical Exam: PE: Constitutional: Well developed, well nourished, mild distress, non-toxic appearance, afebrile. [] HENT: Normocephalic, atraumatic, bilateral external ears normal, oropharynx moist, no oral exudates, nose normal. [] Eyes: PERRLA, EOMI, conjunctiva normal, no discharge. [] Neck: Normal range of motion, no tenderness, supple, no stridor. [] Cardiovascular:Heart rate regular rhythm, no murmur [] Lungs & Thorax: Bilateral breath sounds clear to auscultation [] Abdomen: Bowel sounds normal, soft, no tenderness, no masses, no pulsatile masses. [] Skin: Warm, dry, no erythema, no rash. [] Back: No tenderness, no CVA tenderness. [] Extremities: No tenderness, no cyanosis, no clubbing, ROM intact, no edema. [] Neurologic: Alert and oriented X 3, normal motor function, normal sensory function, no focal deficits noted. [] Psychologic: Affect normal, judgement normal, mood normal. [] EKG: EKG: [] Radiology/Procedures: Radiology/Procedures: [facility] [address] [place], [place] [id number] IMAGING REPORT Signed PATIENT: MAIN SHELDON MACCOUNT: [id number] : 1985 LOCATION: ER AGE: 33 SEX: M EXAM STATUS: REG ER ORD. PHYSICIAN: MICHELLE GIBSON MD REASON: Fever, diarrhea, sore throat PROCEDURE: PORTABLE CHEST 1V PORTABLE CHEST 1V Clinical Indication: Fever, diarrhea, sore throat Comparison: Two-view chest April 12, 2019. Findings: The cardiomediastinal silhouette is normal. Stable bilateral tiny calcified granulomas. Lungs are clear. There is no pneumothorax. No pleural effusion is appreciated. No acute bone abnormality. IMPRESSION: No acute cardiopulmonary process. Electronically signed by: Puneet Fong MD (06/24/2019 9:38 AM) [id number] DICTATED and SIGNED BY: PUNEET FONG MD DATE: 06/24/19 0938 Course & Med Decision Making: Course & Med Decision Making Pertinent Labs and Imaging studies reviewed. (See chart for details) Evaluation of patient inertial 33-year-old male patient with complaining of subjective fever and episode of headache and diarrhea for the last several days without contact with COVID 19 patient. Patient had unremarkable physical exam without fever or tachycardia or hypotension. Labs and chest x-ray was unremarkable. COVID 19 test was requested and patient was advised to follow-up with suspected coronal instruction. Nasir Disclaimer: Nasir Disclaimer: This electronic medical record was generated, in whole or in part, using a voice recognition dictation system. Departure Departure Impression: Primary Impression: Suspected 2019 novel coronavirus infection Additional Impression: Viral illness Disposition: HOME, SELF-CARE (At 1105) Condition: IMPROVED Referrals: NO PCP (PCP) Patient Instructions: Viral Infections Additional Instructions: You have a viral syndrome which may include symptoms like muscle aches, fevers, chills, runny nose, cough, sneezing, sore throat, nausea, vomiting, or diarrhea. One of the potential viruses that you may have is SARS-CoV-2, the virus that causes COVID-19, also known as the Coronavirus. You are just as likely to have a different viral infection such as the common cold, flu, etc. Most patients with the Coronavirus have mild symptoms and recover on their own. Resting, staying hydrated, and sleep based on known cases can be helpful. As of todays visit, you are well enough to go home and treat your symptoms with oral fluids and over the counter medications. Coronavirus testing is not performed on most people with mild symptoms who are being discharged from the emergency department. If Coronavirus testing was performed today the results will not be available for possibly up to 3-4 days. If your result is positive you will be contacted. Please follow the following precautions at home: 1) Stay home except to get medical care. 2) As advised by the CDC, we recommend that you stay in your home and minimize contact with other people. We do not want you to spread the infection. 3) Those who are older or have significant medical issues may have more severe symptoms from this infection. We recommend self-isolation FOR AT LEAST 7 DAYS after your 1st day of symptoms. AFTER you feel better please wait AT LEAST ANOTHER WEEK before returning to regular activities and being around other people. 4) IF you become sicker and have difficulty breathing, chest pain, are unable to eat/drink, severe vomiting, diarrhea, or weakness you may need to return to the Emergency Department. 5) You should restrict activities outside of your home, except for getting medical care. DO NOT go to work, school, or public areas. Avoid using public transportation, ride sharing, or taxis. 6) Separate yourself from other people in your home. You should use a separate bathroom if possible. 7) Avoid sharing personal household items such as dishes, cups, eating utensils, towels, etc. 8) Clean all high touch surfaces every day (door knobs, counter tops, etc). Use a household cleaning spray or wipe per label instructions. 9) Clean your hands often. Wash your hands with soap and water for at least 20 seconds. 10) Cover your mouth and nose when you cough or sneeze. 11) Throw used tissues in the trash and immediately wash your hands. For additional resources please visit the CDC website or the [facility] ([phone]), you may also call 311 for further information. Drink plenty of liquids Follow-up with your primary care physician in 3-5 days Return to ER if not getting better Follow-up with outpatient COVID 19 test Thank you for visiting [facility]. We appreciate you trusting us with your care. If any additional problems come up don't hesitate to return to visit us. Please follow up with your primary care provider so they can plan additional care if needed and know about the problem that you had. If symptoms worsen come back to the Emergency Department. Any concerning symptoms that start such as chest pain, shortness of air, weakness or numbness on one side of the body, running high fevers or any other concerning symptoms return to the ER. Scripts [COVID 19 test] No Conflict Check Prov: MICHELLE GIBSON MD 06/24/19 Hydrocodone/Apap 5-325 (NORCO 5-325 TABLET) 1 Each Tablet 1 TAB PO PRN Q6HRS PRN for PAIN, #10 TAB 0 Refills Prov: MICHELLE GIBSON MD 06/24/19 Benzonatate (TESSALON PERLE) 100 Mg Capsule 1 CAP PO TID, #21 CAP Prov: MICHELLE GIBSON MD 06/24/19 COVID-19 Assessment: COVID-19 Patient Risks: Age 65 or older: No Sign of co-morbidity: Yes Exp to person + for COVID: No Exp to PUI: No Travel from affected area: No Lower respiratory symptoms: No Fever: Yes (Subjective, afebrile in ER) PPE Use: Full PPE with N95 mask or PAPR: Yes Critical Care Time Critical care time was 40 minutes exclusive of procedures. MICHELLE GIBSON MD Jun 24, 2019 09:26
--- NOTE | 2019-06-24 09:41 | RAD ---
PORTABLE CHEST 1V Clinical Indication: Fever, diarrhea, sore throat Comparison: Two-view chest April 12, 2019. Findings: The cardiomediastinal silhouette is normal. Stable bilateral tiny calcified granulomas. Lungs are clear. There is no pneumothorax. No pleural effusion is appreciated. No acute bone abnormality. IMPRESSION: No acute cardiopulmonary process. Electronically signed by: Puneet Fong MD (06/24/2019 9:38 AM) [id number]
[2019-06-24 09:45] LABS: BASO % 1 % (0-3); EOS # 0.2 x10^3/uL (0.0-0.7); EOS % 2 % (0-3); HEMOGLOBIN 15.8 g/dL (13.0-17.5); LYMPH # 2.3 x10^3/uL (1.0-4.8); LYMPH % 27 % (24-48); MEAN CORPUSCULAR HEMOGLOBIN 28 pg (25-35); MEAN CORPUSCULAR HGB CONC 34 g/dL (31-37); MEAN CORPUSCULAR VOLUME 83 fL (79-100); MONO # 0.4 x10^3/uL (0.0-1.1); MONO % 5 % (0-9); NEUT # 5.3 x10^3/uL (1.8-7.7); NEUT % 65 % (31-73); PLATELET COUNT 213 x10^3/uL (140-400); RED BLOOD COUNT 5.68 x10^6/uL (4.30-5.70); RED CELL DISTRIBUTION WIDTH 13.8 % (11.5-14.5); WHITE BLOOD COUNT 8.3 x10^3/uL (4.0-11.0)
[2019-06-24 09:54] LABS: CALCIUM 9.4 mg/dL (8.5-10.1); GFR 86.1; POTASSIUM 3.9 mmol/L (3.5-5.1)
[2019-06-24 10:00] LABS: ALBUMIN 3.9 g/dL (3.4-5.0); ALBUMIN/GLOBULIN RATIO 0.9 (1.0-1.7); TOTAL BILIRUBIN 0.6 mg/dL (0.2-1.0); TOTAL PROTEIN 8.2 g/dL (6.4-8.2)
[2019-06-24 10:03] LABS: INFLUENZA A PATIENT NEGATIVE (NEGATIVE); INFLUENZA B PATIENT NEGATIVE (NEGATIVE)
[2019-06-24 10:20] LABS: BILIRUBIN,URINE NEGATIVE (NEG); CLARITY,URINE CLEAR; COLOR,URINE STRAW; NITRITE,URINE NEGATIVE (NEG); PH,URINE 5.5 (<5.0-8.0); PROTEIN,URINE 100 mg/dL (NEG-TRACE); UROBILINOGEN,URINE 0.2 mg/dL (0.2 mg/dL)
[2019-06-24 10:21] LABS: BACTERIA,URINE 0 /HPF (0-FEW); SQUAMOUS EPITHELIAL CELL,UR OCC /LPF; WBC,URINE 0 /HPF (0-4)
[2019-06-24] MEDS ORDERED: HYDR-3164 PO (11:08)
[2019-06-24] MEDS ORDERED: BENZ100C PO (11:08)
[2019-06-24] MEDS ORDERED: COVID 19 test (11:08)
[2019-06-24 11:09] VITALS: BP 142/97
== END 2019-06-24 11:20 | disposition home or self-care (01) ==
LOC: ER 08:52
DX: B34.9 Viral infection, unspecified (principal); R19.7 Diarrhea, unspecified; R51 Headache; R05 Cough; R50.9 Fever, unspecified; I10 Essential (primary) hypertension; Z98.890 Other specified postprocedural states; Z20.818 Contact with and (suspected) exposure to other bacterial communicable diseases
CPT/HCPCS: 36415; 71045; 80053; 81001; 83605; 83690; 85025; 87804; 96360; 99285; J7030

== ENCOUNTER 2019-08-14 00:15 | Emergency (ER) | payer OTHER, MEDICAID ==
[~2019-08-14] VITALS: Ht 167.6 cm; Wt 100.0 kg
[~2019-08-14 00:15] MED LIST changes: +COVID 19 test
[2019-08-14] MEDS ORDERED: METH-38 PO (02:04)
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
[2019-08-14] MEDS ORDERED: KETOROLAC 60 MG/2 ML VIAL. IM ONE (02:15)
[2019-08-14] MEDS ORDERED: ORPHENADRINE CITRATE 60 MG/2 ML VIAL. IM ONE (02:15)
[2019-08-14 02:35] VITALS: BP 166/101
== END 2019-08-14 02:36 | disposition home or self-care (01) ==
LOC: ER 00:15
DX: S13.4XXA Sprain of ligaments of cervical spine, initial encounter (principal); I10 Essential (primary) hypertension; Z98.890 Other specified postprocedural states; X50.9XXA Other and unspecified overexertion or strenuous movements or postures, initial encounter; Y93.89 Activity, other specified; Y92.89 Other specified places as the place of occurrence of the external cause; Y99.8 Other external cause status
CPT/HCPCS: 96372; 99284; J1885; J2360